=== PATIENT | female | born 1985 | race African-American/Black ===

== ENCOUNTER 2025-03-25 07:16 | Emergency (ER) | payer MEDICAID, OTHER ==
[~2025-03-25] VITALS: Ht 157.5 cm; Wt 75.0 kg
[~2025-03-25 07:16] MED LIST: FERR-71 PO; PRENATAL VITAMINS
[2025-03-25 07:23] VITALS: O2SAT 100
[2025-03-25 07:28] VITALS: BP 125/83; PULSE 85; RESP 18; TEMP 36.9; O2SAT 98
[2025-03-25 08:36] LABS: BASOPHILS % 0.9 % (0.0-2.0); EOSINOPHILS % 3.0 % (0.0-5.0); HEMATOCRIT. 42.2 % (36.0-48.0); HEMOGLOBIN. 13.9 g/dL (12.0-16.0); LYMPHOCYTES % 21.0 % (20.0-50.0); MEAN PLATELET VOLUME 10.2 fl (7.4-10.4); MONOCYTES % 12.3 % (2.0-8.0); NEUTROPHILS % 62.8 % (40.0-76.0); PLATELET 253 x1000/uL (130-400); RED BLOOD CELL COUNT 4.89 mill/uL (4.2-5.4); RED CELL DISTRIBUTION WIDTH 13.9 % (11.6-14.6)
[2025-03-25 08:52] LABS: CLARITY URINE CLOUDY (CLEAR); COLOR URINE YELLOW (YELLOW)
[2025-03-25 08:53] LABS: GLUCOSE URINE NEGATIVE (NEGATIVE); KETONES URINE NEGATIVE (NEGATIVE); LEUKOCYTE ESTERASE URINE NEGATIVE (NEGATIVE); NITRITE URINE NEGATIVE (NEGATIVE); OCCULT BLOOD URINE NEGATIVE (NEGATIVE); PH URINE 5.0 (4.5-8.0); PROTEIN URINE NEGATIVE (NEGATIVE); SPECIFIC GRAVITY URINE 1.017 (1.005-1.030); UROBILINOGEN URINE 0.2 E.U./dL (0.2-1.0)
[2025-03-25 08:58] LABS: CREATININE 0.8 mg/dL (0.6-1.0)
[2025-03-25 08:59] LABS: UREA NITROGEN BLOOD 8 mg/dL (9-23)
[2025-03-25 09:00] LABS: ASPARTATE AMINOTRANSFERASE 17 IU/L (<34); BILIRUBIN DIRECT < 0.1 mg/dL (<=3.0)
[2025-03-25 09:01] LABS: BILIRUBIN TOTAL 0.3 mg/dL (0.1-1.0); PROTEIN TOTAL 7.2 g/dL (6.0-8.3)
[2025-03-25 09:09] LABS: INFLUENZA TYPE A Presumptive Negative (Pres. Neg.); INFLUENZA TYPE B Presumptive Negative (Pres. Neg.)
[2025-03-25 09:10] LABS: RESPIRATORY SYNCYTIAL VIRUS Not Detected (Not Detectd)
[2025-03-25 09:14] LABS: SQUAMOUS EPITHELIAL CELL URINE 3+ /lpf (RARE/1+)
[2025-03-25 09:15] LABS: WBC URINE 0-2 /hpf (0-2)
[2025-03-25 09:16] LABS: BACTERIA URINE 2+; RBC URINE NONE SEEN /hpf (0-2)
[2025-03-25] MEDS ORDERED: AZIT500T8 MT (09:27)
[2025-03-25] MEDS ORDERED: AMOX-494 MT (09:27)
== END 2025-03-25 09:50 | disposition home or self-care (01) ==
LOC: ER 08:12
DX: J11.00 Influenza due to unidentified influenza virus with unspecified type of pneumonia (principal); J45.909 Unspecified asthma, uncomplicated; Z98.890 Other specified postprocedural states; Z79.899 Other long term (current) drug therapy; Z20.822 Contact with and (suspected) exposure to COVID-19
CPT/HCPCS: 36415; 71045; 80048; 80076; 81003; 81025; 85025; 87420; 87426; 87804; 99284

== ENCOUNTER 2025-03-28 16:17 | Emergency (ER) | payer OTHER ==
[~2025-03-28] VITALS: Ht 144.8 cm; Wt 62.0 kg
[~2025-03-28 16:17] MED LIST changes: +AMOX-494 MT; +AZIT500T8 MT
[2025-03-28 16:22] VITALS: BP 134/78; TEMP 36.9; O2SAT 99
[2025-03-28 16:39] VITALS: PULSE 75; RESP 18; O2SAT 99
[2025-03-28 18:42] VITALS: TEMP 98.5
[2025-03-28] MEDS: ACETAMINOPHEN 500MG TABLET PO ONE (18:42)
[2025-03-28 18:45] LABS: BASOPHILS % 0.5 % (0.0-2.0); EOSINOPHILS % 1.3 % (0.0-5.0); HEMATOCRIT. 40.5 % (36.0-48.0); HEMOGLOBIN. 13.8 g/dL (12.0-16.0); LYMPHOCYTES % 23.3 % (20.0-50.0); MEAN PLATELET VOLUME 10.3 fl (7.4-10.4); MONOCYTES % 8.9 % (2.0-8.0); NEUTROPHILS % 66.0 % (40.0-76.0); PLATELET 290 x1000/uL (130-400); RED BLOOD CELL COUNT 4.73 mill/uL (4.2-5.4); RED CELL DISTRIBUTION WIDTH 13.3 % (11.6-14.6)
[2025-03-28 18:46] LABS: HCG SCREEN NEGATIVE
[2025-03-28 18:48] LABS: CREATININE 0.8 mg/dL (0.6-1.0)
[2025-03-28 18:49] LABS: TROPONIN I HIGH SENSITIVITY < 4 ng/L (3.0-34); UREA NITROGEN BLOOD 10 mg/dL (9-23)
[2025-03-28 18:50] LABS: ASPARTATE AMINOTRANSFERASE 17 IU/L (<34)
[2025-03-28 18:51] LABS: BILIRUBIN DIRECT 0.1 mg/dL (<=3.0); BILIRUBIN TOTAL 0.5 mg/dL (0.1-1.0); PROTEIN TOTAL 7.1 g/dL (6.0-8.3)
[2025-03-28] MEDS ORDERED: IBUP-2030 MT (19:00)
== END 2025-03-28 19:12 | disposition home or self-care (01) ==
LOC: ER 16:17 → CMPBEDREQ 03-29 08:52
DX: M94.0 Chondrocostal junction syndrome [Tietze] (principal); Z98.890 Other specified postprocedural states; Z79.899 Other long term (current) drug therapy
CPT/HCPCS: 36415; 71045; 80048; 80076; 83735; 83880; 84484; 84703; 85025; 93005; 99285